=== PATIENT | female | born 1990 | race African-American/Black ===

== ENCOUNTER 2016-10-14 14:52 | Emergency (ER) | payer MEDICAID ==
--- NOTE | 2016-10-18 23:16 | ER ---
ADMIT: 10/14/2016 RM/LOC: ER [facility] MR#: [id number] [facility] [address] [place], [place] [id number] [address] [facility] [address] [place] [address] Emergency Room Report SEX: F AGE: 26 : 1990 DATE: 10/14/2016 PRIMARY CARE PHYSICIAN: Dr. Ronak Arias. CHIEF COMPLAINT: Fall, left shoulder pain. HISTORY OF PRESENT ILLNESS: This is a 26-year-old, black female, who presents to the emergency room for evaluation after a fall at home. History is taken from the as the does not speak much Greek. states approximately 30 minutes prior to arrival, the patient fell in the kitchen and struck her left shoulder. The patient states she currently has some pain on the posterior aspect of her left shoulder. She also states she feels like her heart is racing. Denies any fevers or chills. No nausea, vomiting, difficulty walking, or lightheadedness. COURSE IN THE EMERGENCY ROOM: The patient was seen and examined. Vital signs are; blood pressure 140/87, heart rate 116, respirations 16, temperature 99.6, and 99% on room air. The patient was observed during her stay. Her heart rate remained in the 90s throughout her stay. Examination of the left posterior shoulder shows no obvious deformity or ecchymosis. She has some soft tissue tenderness, but no real bony tenderness. Did obtain some basic labs on her. White blood cells 6.6, hemoglobin 11.8, hematocrit 37, platelets 338. BMP shows sodium 138, potassium 3.4, chloride 103, CO2 of 27, glucose 138, creatinine 0.8. I also did order a TSH and free T4 which are pending at this time as the lab is currently down with their special chemistry analyzer. IMPRESSION: 1. Left posterior shoulder contusion. 2. stress reaction. DISPOSITION: I did discuss the findings of the labs today as well as the exam. I thought given her current circumstances and 3 kids at home, just having a child 2 months ago as well as the recent loss of her father, she is ADMIT: 10/14/2016 RM/LOC: ER [facility] MR#: [id number] [facility] [address] [place], [place] [address] [facility] [address] [address] [place] [address] Emergency Room Report SEX: F AGE: 26 : 1990 currently under a lot of stress which could be contributing to her sensation of some heart racing and generalized anxiety. I did give them the option to wait until the chemistry analyzer was back online for the results of the TSH. They declined and stated they would rather go home at this time. I did discuss following up with Dr. Arias sometime next week to discuss some of her stress and seeing if there was any better option for her to manage some of the stressors she currently is under. She was told to increase her fluids and to use Tylenol or Motrin if needed. On her shoulder, she can also use ice for the pain. She is to return home and rest. Certainly return to the ER with any worsening signs or symptoms. Questions were sought and answered to the best of my ability and the patient's satisfaction. We will call with any concerns with the TSH test when it is completed. NASIM Null / Haseeb Arriola MD / andrea JOB #: [id number] CC: Haseeb Arriola MD, Attending Physician UNKNOWN, Family Physician
== END 2016-10-14 17:35 | disposition home or self-care (01) ==
LOC: ER 14:52
DX: S40.012A Contusion of left shoulder, initial encounter (principal); F43.9 Reaction to severe stress, unspecified; X58.XXXA Exposure to other specified factors, initial encounter; Y92.000 Kitchen of unspecified non-institutional (private) residence as the place of occurrence of the external cause